=== PATIENT | male | born 1975 | race Caucasian/White ===

== ENCOUNTER 2024-11-18 13:13 | Outpatient (CLI) | payer OTHER, SELFPAY | END 2024-11-18 13:14 | disposition home or self-care (01) | PROVIDERS: PCP Internal Medicine; Visit Provider Internal Medicine | DX: R03.0 Elevated blood-pressure reading, without diagnosis of hypertension (principal); Z12.5 Encounter for screening for malignant neoplasm of prostate; Z13.9 Encounter for screening, unspecified | CPT/HCPCS: 80053; G0103 ==